=== PATIENT | male | born 1985 | race Caucasian/White ===

== ENCOUNTER 2017-01-09 07:41 | Emergency (ER) | payer SELFPAY ==
[2017-01-09] MEDS ORDERED: LOPERAMIDE HCL 2 MG CAPSULE PO ONE (08:39)
[2017-01-09] MEDS ORDERED: NORMAL SALINE 1000 ML 1,000 ML IV ONE (08:39)
[2017-01-09] MEDS ORDERED: ONDANSETRON HCL INJ/PF 4 MG/2 ML SDV IV ONE ×2 (08:39→10:49)
--- NOTE | 2017-01-09 08:40 | ER Document Report ---
ED GI/ - General Mode of Arrival: Ambulatory Information source: Patient TRAVEL OUTSIDE OF THE [place] IN LAST 30 DAYS: No - HPI Patient complains to provider of: Other - see narrative Timing/Duration: Persistent Quality of pain: Pressure Location: Epigastric Associated symptoms: Other - see narrative - General Chief Complaint: Nausea/Vomiting/Diarrhea Stated Complaint: NAUSEA/VOMITING/DIARRHEA Time Seen by Provider: 01/09/17 08:31 Notes: Patient is a 31 year old male that presents to the emergency department today with complaints of nausea, vomiting, and diarrhea with associated upper abdominal pressure beginning last night at 1999. Patient states that his "temperature usually runs 96.4 and it was 98 last night" so he states he is febrile. Patient states a coworker of his has similar symptoms. Patient states he feels like he is dehydrated because he has not urinated since yesterday. Patient complains of back pain and a headache as well. Patient states he has seen no gross blood in his diarrhea or vomit but they were "kind of red". ( JANAK BURNETT) - Related Data Allergies/Adverse Reactions: No Known Allergies Allergy (Verified 01/09/17 08:32) Past Medical History - General Information source: Patient - Social History Smoking Status: Never Smoker Cigarette use (# per day): No Chew tobacco use (# tins/day): No Frequency of alcohol use: None Drug Abuse: None Lives with: Family Family History: Reviewed & Not Pertinent Neurological Medical History: Reports: Hx Seizures - febrile Surgical Hx: Negative Review of Systems - Review of Systems Constitutional: No symptoms reported EENT: No symptoms reported Cardiovascular: No symptoms reported Respiratory: No symptoms reported Gastrointestinal: See HPI, Abdominal pain, Diarrhea, Nausea, Vomiting Genitourinary: No symptoms reported Male Genitourinary: No symptoms reported Musculoskeletal: See HPI, Back pain Skin: No symptoms reported Hematologic/Lymphatic: No symptoms reported Neurological/Psychological: See HPI, Headaches -: Yes All other systems reviewed and negative Physical Exam - Vital signs Vitals: Temp Pulse Resp BP Pulse Ox 97.6 F 56 L 18 154/95 H 100 01/09/17 07:44 01/09/17 07:44 01/09/17 07:44 01/09/17 07:44 01/09/17 07:44 - Notes Notes: PHYSICAL EXAM GENERAL: Alert, interacts well. No acute distress. HEAD: Normocephalic, atraumatic. EYES: Pupils equal, round, and reactive to light. Extraocular movements intact. Moist oral mucosa, no sign of dehydration. ENT: Oral mucosa moist, tongue midline. NECK: Full range of motion. Supple. Trachea midline. LUNGS: Clear to auscultation bilaterally, no wheezes, rales, or rhonchi. No respiratory distress. HEART: Regular rate and rhythm. No murmurs, gallops, or rubs. ABDOMEN: Soft, non-tender. Non-distended. Bowel sounds present in all 4 quadrants. EXTREMITIES: Moves all 4 extremities spontaneously. No cyanosis. NEUROLOGICAL: Alert and oriented x3. Normal speech. PSYCH: Normal affect, normal mood. SKIN: Warm, dry, normal turgor. No rashes or lesions noted. (JANAK BURNETT) Course - Re-evaluation Re-evalutation: 01/09/17 10:51 Patient reports "immediately vomiting" after drinking a sip of water. Patient able to urinate, complains of back pain after having to strain during urination. (JANAK BURNETT) 01/09/17 12:17 Lipase normal at 63.7, urinalysis does not show any signs of dehydration or infection, patient was able to urinate without difficulty, hydrated with a liter of normal saline, treated with Zofran, able to drink some water, no further diarrhea. Discharged home with Zofran. (CONCETTA FLYNN) - Vital Signs Vital signs: Temp Pulse Resp BP Pulse Ox 98.0 F 63 16 124/61 100 01/09/17 11:46 01/09/17 12:26 01/09/17 12:26 01/09/17 12:26 01/09/17 12:26 Discharge - Discharge Clinical Impression: Nausea vomiting and diarrhea Condition: Stable Disposition: HOME, SELF-CARE Additional Instructions: You are not dehydrated. You do not have pancreatitis. You do not have a urinary tract infection or kidney stones. Please drink small sips of water or half Gatorade half water. Follow a gentle diet, start with clear liquids and then you may slowly advance to gentle soups, bananas, rice, applesauce and toast. Use the Zofran as directed on the prescription, use Imodium as directed on the box or diarrhea. Please return to the emergency department for any new or concerning symptoms. Prescriptions: Ondansetron [Zofran Odt 4 mg Tablet] 1 - 2 tab PO Q4H PRN #15 tab.rapdis PRN Reason: For Nausea/Vomiting Forms: Return to Work Referrals: JODI HUNTLEY MD [ACTIVE STAFF] - Follow up as needed Scribe Attestation: 01/09/17 14:18 I personally performed the services described in the documentation, reviewed and edited the documentation which was dictated to the scribe in my presence, and it accurately records my words and actions. (CONCETTA FLYNN) Scribe Documentation - Scribe Written by Kiesha:: Kiesha Singh, 01/09/2017 0920 acting as scribe for :: Quoc
[2017-01-09] MEDS ORDERED: KETOROLAC TROMETHAMINE INJ/PF 30 MG/1 ML SDV IV ONE (10:07)
[2017-01-09 11:13] LABS: APPEARANCE,URINE CLEAR; BILIRUBIN,URINE NEGATIVE (NEGATIVE); GLUCOSE, URINE NEGATIVE (NEGATIVE); KETONES,URINE NEGATIVE (NEGATIVE); LEUKOCYTE ESTERASE,URINE NEGATIVE (NEGATIVE); NITRITE,URINE NEGATIVE (NEGATIVE); PROTEIN,URINE NEGATIVE (NEGATIVE); URINE SPECIFIC GRAVITY 1.012; UROBILINOGEN,URINE NEGATIVE mg/dL (<2.0)
[2017-01-09 12:30] VITALS: BP 124/61
== END 2017-01-09 12:28 | disposition home or self-care (01) ==
LOC: ER 07:41
DX: R11.2 Nausea with vomiting, unspecified (principal); R19.7 Diarrhea, unspecified
CPT/HCPCS: 96376; 99284; 96374; 96375; 36415; 83690; 81001; J1885; J2405; J7030